=== PATIENT | female | born 1965 | race American Indian/Alaskan Native ===

== ENCOUNTER 2017-10-10 19:35 | Inpatient (IN) | payer BC ==
[2017-10-10 20:34] LABS: Basophils % (Auto) 0.8 % (0.0-1.8); Eosinophils % (Auto) 1.7 % (0.0-4.3); Hematocrit 42.4 % (30.3-42.9); Hemoglobin 13.3 gm/dl (10.1-14.3); Mean Corpuscular HGB Conc 31 % (30-34); Mean Corpuscular Volume 82 fl (79-97); Platelet Count 262 K/mm3 (140-440); Red Blood Count 5.16 M/mm3 (3.65-5.03); Red Cell Distribution Width 13.9 % (13.2-15.2)
[2017-10-10 20:45] LABS: Mean Corpuscular Hemoglobin 26 pg (28-32)
[2017-10-10 20:46] LABS: Anion Gap 16 mmol/L; BUN/Creatinine Ratio 12; Blood Urea Nitrogen 11 mg/dL (7-17); Calcium 9.3 mg/dL (8.4-10.2); Carbon Dioxide 27 mmol/L (22-30); Chloride 101.7 mmol/L (98-107); Glucose 96 mg/dL (65-100); Potassium 4.3 mmol/L (3.6-5.0); Sodium 140 mmol/L (137-145)
--- NOTE | 2017-10-11 02:13 | XRay Report ---
FINAL REPORT EXAM: XR CHEST 1V AP HISTORY: Chest pain. TECHNIQUE: A single frontal portable radiograph of the chest was obtained. No prior studies are available for comparison. FINDINGS: The heart is borderline enlarged. The lungs are clear bilaterally, without focal infiltrate or effusion. There is no pneumothorax. No significant osseous abnormalities are identified. IMPRESSION: Borderline cardiomegaly. Otherwise, no active disease seen in the chest.
[2017-10-11] MEDS ORDERED: SUBLIMAZE IV ONE (04:02)
[2017-10-11] MEDS ORDERED: NITROSTAT SL ONE (04:02)
[2017-10-11] MEDS ORDERED: ZOFRAN IV ONE (04:02)
[2017-10-11] MEDS ORDERED: BABY ASPIRIN PO ONE (04:03)
--- NOTE | 2017-10-11 04:03 | Emergency Department Report ---
HPI - General Chief Complaint: Chest Pain Time Seen by Provider: 10/11/17 02:49 - HPI HPI: The patient is a 52-year-old female with a history of hypertension, whom presents for evaluation of chest pain. The patient reports chest pain since 7 PM last night, mid-sternal location, pressure-like in quality, 4/10 in severity , constant since onset, and exacerbated with activity. The patient denies fever , trauma to the chest wall, cough, dyspnea, hemoptysis, unilateral leg swelling , oral contraceptive use, recent immobilization, history of DVT or PE, recent cancer. She submits that she has not received a stress test or cardiac catheter in the past. ED Past Medical Hx - Past Medical History Hx Hypertension: Yes - Surgical History Additional Surgical History: , partial hysterectomy - Social History Smoking Status: Never Smoker Substance Use Type: None ED Review of Systems ROS: Stated complaint: CP/HEADACHE Other details as noted in HPI Constitutional: denies: fever ENT: denies: throat or neck pain Respiratory: denies: cough, shortness of breath Cardiovascular: reports chest pain Endocrine: denies unexplained weight loss or gain Gastrointestinal: denies: abdominal pain, nausea Genitourinary: denies: dysuria Musculoskeletal: denies: leg swelling Skin: denies: rash Neurological: denies: headache Hematological/Lymphatic: denies: easy bleeding or easy bruising Psych: denies sadness or hopelessness Physical Exam - Physical Exam Vital Signs: Vital Signs 10/10/17 10/11/17 10/11/17 19:48 00:13 00:16 Temperature 98.4 F Pulse Rate 71 71 Respiratory 18 16 20 Rate Blood Pressure 171/74 160/67 O2 Sat by Pulse 100 98 99 Oximetry 10/11/17 10/11/17 10/11/17 00:30 00:46 01:00 Temperature Pulse Rate 57 L 57 L 57 L Respiratory 17 18 18 Rate Blood Pressure 160/67 160/67 155/78 O2 Sat by Pulse 100 99 100 Oximetry 10/11/17 10/11/17 01:16 01:30 Temperature Pulse Rate 63 67 Respiratory 19 16 Rate Blood Pressure 155/78 155/78 O2 Sat by Pulse 97 99 Oximetry Physical Exam: General: well-nourished, well-developed, no acute distress Head: Normocephalic, atraumatic Eyes: normal sclera ENT: Mucous membranes are pink and moist Neck: trachea midline, neck supple, No neck stiffness, no cervical adenopathy Respiratory: Breath sounds equal bilaterally, no wheezing, rales, or rhonchi Cardio: S1 and S2 present, no murmurs, rubs, gallops, capillary refill is brisk Abdomen: Normoactive bowel sounds, soft abdomen, no rigidity, no guarding or rebound tenderness Musc: No pitting edema Skin: No rash Neuro: no facial drooping, normal speech Psych: Normal affect ED Course Vital Signs 10/10/17 10/11/17 10/11/17 19:48 00:13 00:16 Temperature 98.4 F Pulse Rate 71 71 Respiratory 18 16 20 Rate Blood Pressure 171/74 160/67 O2 Sat by Pulse 100 98 99 Oximetry 10/11/17 10/11/17 10/11/17 00:30 00:46 01:00 Temperature Pulse Rate 57 L 57 L 57 L Respiratory 17 18 18 Rate Blood Pressure 160/67 160/67 155/78 O2 Sat by Pulse 100 99 100 Oximetry 10/11/17 10/11/17 01:16 01:30 Temperature Pulse Rate 63 67 Respiratory 19 16 Rate Blood Pressure 155/78 155/78 O2 Sat by Pulse 97 99 Oximetry ED Medical Decision Making - Lab Data Result diagrams: 10/10/17 20:13 10/10/17 20:13 - Medical Decision Making The patient was seen and examined by myself. The patient is placed on a die inspector and continuous pulse ox. On initial evaluation, the patient was found to be in no distress. EKG was negative for findings suggestive of acute cardiac infarct. The patient is given an aspirin, a nitroglycerin tablet, and Iv fentanyl for her pain. Labs and imaging are obtained. Chest x-ray is negative for pneumothorax, focal consolidation, pulmonary vascular congestion, pleural effusion, or other obvious acute cardiopulmonary disease process. Lab results were non-revealing including negative troponin, WBC, hemoglobin, hematocrit, electrolytes, renal function. The patient was reevaluated and reported that their symptoms were improved. As the patient has chest pain and risk factors for development of acute coronary event, the patient will be admitted for close cardiopulmonary monitoring, serial troponins, and evaluation by cardiology. The physician on-call was contacted. They presented to the emergency department and evaluated the patient. They agreed to admit the patient. The ED admit order was placed. The patient was admitted in guarded condition. Critical care attestation.: If time is entered above; I have spent that time in minutes in the direct care of this critically ill patient, excluding procedure time. ED Disposition Clinical Impression: Acute chest pain Disposition: DC-09 OP ADMIT IP TO THIS HOSP Is pt being admited?: Yes Does the pt Need Aspirin: Yes Condition: Stable Time of Disposition: 04:03
[2017-10-11] MEDS ORDERED: ZOFRAN IV PRN (04:38)
[2017-10-11] MEDS ORDERED: DULCOLAX PR PRN (04:38)
[2017-10-11] MEDS ORDERED: PERCOCET 5/325 PO PRN (04:38)
[2017-10-11] MEDS ORDERED: MILK OF MAGNESIA PO PRN (04:38)
[2017-10-11] MEDS ORDERED: TYLENOL PO PRN (04:38)
--- NOTE | 2017-10-11 04:41 | History and Physical Report ---
History of Present Illness Date of examination: 10/11/17 History of present illness: 52-year-old woman with a history of hypertension, noncompliant with medication over the last month was emergency room with complaints of chest pain in the epigastric area which she described as a sharp pain that started yesterday, constant, intensity 4/10, radiating up to the neck and associated with tingling in the bilateral arms. She cannot identify exacerbating or relieving factors. Also complained of a funny feeling in her head. Denies nausea vomiting, shortness of breath, diaphoresis or palpitation Review Of Systems: Constitutional: no weight loss Ears, eyes, nose, mouth and throat: no nasal congestion, no nasal discharge, no sinus pressure, blurry vision, diplopia Neck: No neck pain or rigidity. Cardiovascular: no , orthopnea, palpitations Respiratory: No shortness of breath, cough Gastrointestinal:no abdominal pain, hematochezia Genitourinary : no dysuria, frequency , hematuria Musculoskeletal: no muscle ache Integumentary: no rash, no pruritis Neurological: no parathesias, focal weakness Endocrine: no cold or heat intolerance, no polyuria or polydipsia Hematologic/Lymphatic: no easy bruising, no easy bleeding, no gland swelling Allergic/Immunologic: no urticaria, no angioedema. PAST MEDICAL HISTORY:ypertension PAST SURGICAL HISTORY: Tubal ligation, hysterectomy, FAILY HISTORY:hypertension SOCIAL HISTORY: Denies alcohol, tobacco, drugs Medications and Allergies Allergies Allergy/AdvReac Type Severity Reaction Status Date / Time No Known Allergies Allergy Verified 10/11/17 04:42 Exam - Physical Exam Narrative exam: Gen. appearance: Patient lying in bed in no acute distress HEENT: Normocephalic/atraumatic, pupils equal round reactive to light, extra alkaline movement intact, no scleral icterus, no JVD or thyromegaly or nodule, neck is supple, mucous membrane moist, no erythema or exudate Heart: S1-S2, regular rate and rhythm Lungs: Clear to auscultation bilateral breathing comfortable Abdomen: Positive bowel sounds, nontender, nondistended, no organomegaly Extremities: No edema, cyanosis, clubbing Neuro:: Oriented 3 , cranial nerves II-12 intact, speech, motor intact Skin: No rash, nodules, warm dry - Constitutional Vitals: Temp Pulse Resp BP Pulse Ox 98.4 F 67 16 155/78 99 10/10/17 19:48 10/11/17 01:30 10/11/17 01:30 10/11/17 01:30 10/11/17 01:30 Results - Labs CBC & Chem 7: 10/10/17 20:13 10/10/17 20:13 Labs: Abnormal lab results 10/10/17 Range/Units 20:13 RBC 5.16 H (3.65-5.03) M/mm3 MCH 26 L (28-32) pg Shelby % (Auto) 7.5 H (0.0-7.3) % - Imaging and Cardiology EKG: image reviewed Chest x-ray: image reviewed Assessment and Plan Assessment Hypertensive urgency Chest pain mostly secondary to #1 Headache Plan Admit to medicine Obtain CAT scan of the head Start IV hydralazine as needed for blood pressure control Check cardiac enzymes, stress test DVT prophylaxis, aspirin
[2017-10-11 05:30] LABS: Creatine Kinase MB 2.4 ng/mL (0.0-4.0)
[2017-10-11 05:34] LABS: Creatine Kinase 201 units/L (30-135)
--- NOTE | 2017-10-11 05:44 | Cat Scan Report ---
FINAL REPORT EXAM: CT HEAD/BRAIN WO CON HISTORY: hernandez TECHNIQUE: CT imaging acquired through the head without intravenous contrast. Transaxial reformations are provided. PRIORS: None. FINDINGS: The ventricles, cisterns and sulci are within normal limits. No intraparenchymal or extra-axial mass, hemorrhage, or mass effect. Murguia and white-matter differentiation is within normal limits for patient age. Normal spherical shape of the globes. No significant abnormality involving the imaged portions of the paranasal sinuses and mastoid air cells. No skull fracture visualized. IMPRESSION: No acute intracranial abnormality. Consider follow-up MRI for worsening/persistent symptoms.
--- NOTE | 2017-10-11 09:18 | Discharge Summary ---
Providers - Providers Date of Admission: 10/11/17 04:38 Attending physician: EULALIO YOU MD Primary care physician: BEBE SINHA MD Hospitalization Reason for admission: chest pain, hypertensive urgency Condition: Stable Disposition: DC-01 TO HOME OR SELFCARE Time spent for discharge: 35 mins Core Measure Documentation - Palliative Care Palliative Care/ Comfort Measures: Not Applicable - Core Measures Any of the following diagnoses?: none - VTE Discharge Requirements Deep Vein Thrombosis/Pulmonary Embolism Present on Admission: No Exam - Constitutional Vitals: Temp Pulse Resp BP Pulse Ox 98.4 F 71 19 148/85 96 10/10/17 19:48 10/11/17 08:00 10/11/17 08:00 10/11/17 08:00 10/11/17 08:00 Plan Activity: advance as tolerated, fall precautions Diet: low salt Special Instructions: record daily BP diary Follow up with: BEBE SINHA MD [Primary Care Provider] - 3-5 Days Prescriptions: Hydrochlorothiazide [HCTZ] 25 mg PO QDAY #30 tablet
[2017-10-11] MEDS ORDERED: LOVENOX SUB-Q SCH ×2 (10:00)
[2017-10-11 10:06] VITALS: BP 137/78
[2017-10-11] MEDS ORDERED: HCTZ PO SCH (11:00)
--- NOTE | 2017-10-12 03:16 | Treadmill Report ---
PROCEDURE: Treadmill stress test. DONE BY: Dr. Manny Vazquez MD REASON FOR STUDY: Chest pain. READING PHYSICIAN: Exercised on Xiang protocol for 6 minutes. Resting heart rate was 47, resting blood pressure 130/80. The patient's peak heart rate was 142, which is 85% maximum heart rate. Peak blood pressure 150/89. BASELINE EKG: Sinus rishabh with no ST-T abnormality. The patient had no EKG changes suggestive of ischemia or arrhythmias stop secondary to shortness of breath. SUMMARY: 1. Negative treadmill EKG. 2. Fair exercise capacity 6 minutes Xiang protocol. 3. The patient had appropriate heart rate response to activity and no EKG changes suggestive of ischemia. 4. No exaggerated blood pressure response to exercise. JOB# [id number] J CARLOS/ANAIS
== END 2017-10-11 10:10 | disposition home or self-care (01) | DRG 305 ==
LOC: ED 19:35 → 4A 10-11 04:38
PROVIDERS: ADMIT Internal Medicine; ATTEND Internal Medicine
DX: I16.0 Hypertensive urgency (principal); I10 Essential (primary) hypertension; R51 Headache; Z90.710 Acquired absence of both cervix and uterus; Z98.51 Tubal ligation status; Z82.49 Family history of ischemic heart disease and other diseases of the circulatory system
CPT/HCPCS: 36415; 70450; 71010; 80048; 82550; 82553; 84484; 85025; 93005; 93010; 93017; 96374; 96375; J2405; J3010